=== PATIENT | male | born 1980 | race Caucasian/White ===

== ENCOUNTER 2017-07-28 | Emergency (ER) | payer OTHER ==
[~2017-07-28] VITALS: Ht 175.3 cm; Wt 80.0 kg
[2017-07-28 00:08] VITALS: Ht 175.3 cm; Wt 80.0 kg
--- NOTE | 2017-07-28 00:59 | ERD ---
ER Documentation Chief Complaint Chief Complaint mechanical fall, ETOH HPI The patient is a 37-year-old male, presenting to the ER because he had a mechanical fall while he was getting out of the shower around 9:30 PM. He is awake, alert, able to answer question appropriately. He denies syncope, near syncope, neck pain, chest pain, dyspnea, abdominal pain, vomiting. He does not smoke, drinks socially, denies illicit drug, had Tdap IM about 2 years ago Past medical history: Hemophilia Surgical history: None ROS All systems reviewed and are negative except as per history of present illness. Allergies Allergies: Coded Allergies: No Known Allergy (Unverified , 07/28/17) PMhx/Soc History of Surgery: No Anesthesia Reaction: No Hx Neurological Disorder: No Hx Respiratory Disorders: No Hx Cardiac Disorders: No Hx Psychiatric Problems: No Hx Miscellaneous Medical Probl: No (HEMOPHILIA) Hx Alcohol Use: Yes Hx Substance Use: No Hx Tobacco Use: Yes Smoking Status: Current every day smoker Physical Exam Vitals Vital Signs Date Time Temp Pulse Resp B/P Pulse Ox O2 Delivery O2 Flow Rate FiO2 07/28/17 00:08 97.9 104 18 121/75 98 Physical Exam Const: No acute distress. Head: There is a 8 cm scalp lac with mild bleeding Eyes: Normal Conjunctiva. ENT: Normal External Ears, Nose and Mouth. Neck: Full range of motion. No meningismus. Resp: Clear to auscultation bilaterally. Cardio: Regular rate and rhythm. Abd: Soft, non distended, normal bowel sounds, non tender. Skin: No petechiae or rashes. Back: No midline or flank tenderness. Ext: No cyanosis, or edema. Neur: Awake and alert. No focal deficit Psych: Normal Mood and Affect. Result Diagram: 07/28/1721407/28/17214 Results 24 hrs Laboratory Tests Test 07/28/17 02:15 White Blood Count 4.110^3/ul Red Blood Count 4.1410^6/ul Hemoglobin 7.9g/dl Hematocrit 26.7% Mean Corpuscular Volume 64.5fl Mean Corpuscular Hemoglobin 19.1pg Mean Corpuscular Hemoglobin Concent 29.6g/dl Red Cell Distribution Width 22.4% Platelet Count 6810^3/UL Mean Platelet Volume fl Neutrophils % 40.1% Lymphocytes % 38.2% Monocytes % 14.7% Eosinophils % 2.9% Basophils % 3.9% Nucleated Red Blood Cells % 0.0/100WBC Neutrophils # 1.710^3/ul Lymphocytes # 1.610^3/ul Monocytes # 0.610^3/ul Eosinophils # 0.110^3/ul Basophils # 0.210^3/ul Nucleated Red Blood Cells # 0.010^3/ul Prothrombin Time 16.6Sec Prothrombin Time Ratio 1.3 INR International Normalized Ratio 1.32 Activated Partial Thromboplast Time 54.2Sec Sodium Level 146mmol/L Potassium Level 3.5mmol/L Chloride Level 107mmol/L Carbon Dioxide Level 25mmol/L Anion Gap 18 Blood Urea Nitrogen 7mg/dl Creatinine 0.76mg/dl Glucose Level 102mg/dl Calcium Level 8.3mg/dl Current Medications Medications (Trade) Dose Ordered Sig/Alyx Route PRN Reason Start Time Stop Time Status Last Admin Dose Admin Lidocaine/ Epinephrine (Xylocaine 1%/ Epi (Pf)) 30 ml ONCE STAT INJ 07/28/17 03:01 07/28/17 03:02 DC Procedures/[place] [id number] Radiology Main Line: [phone] DIAGNOSTIC IMAGING REPORT Patient: SHAWN LEÓN : 1980 Age: 37 Sex: M MR #: [id number] [facility] #: [id number] DOS: 07/28/17 0127 Ordering MD: JOSE OROZCO MD Location: E/R Room/Bed: PROCEDURE: CT Brain without contrast. CLINICAL INDICATION: Headache. TECHNIQUE: A CT of the brain was performed utilizing axial imaging from the skull base through the vertex without IV contrast. Multiplanar reformatted images were made. Images were reviewed on a PACS workstation. The CTDIvol is 44.03 mGy and the DLP is 720.23 mGycm. DICOM images are available. One or more of the following dose reduction techniques were utilized: 1.) Automated exposure control 2.) Adjustment of the mA +/- kV according to patient's size 3.) Use of iterative reconstruction technique. COMPARISON: None FINDINGS: Scalp hematoma over the posterior left parietal occipital region. Mild chronic changes of atrophy are greater than expected for patient age. There is no intracranial hemorrhage, mass effect, or midline shift. No extra- axial fluid collection is seen. The ventricles and sulci are normal in size and configuration. The density of the brain is normal, and the rubin white matter differentiation appears well-preserved. The visualized paranasal sinuses and osseous structures are grossly unremarkable. IMPRESSION: 1. Scalp hematoma over the posterior left parietal occipital region. 2. Mild chronic changes of atrophy are greater than expected for patient age, and otherwise, no acute process in the head. RPTAT: [facility] Physician Geovany Date Time Electronically viewed and signed by Physician Geovany on 07/28/2017 02:02 RS/ CC: JOSE OROZCO MD [place] [address] Radiology Main Line: [phone] DIAGNOSTIC IMAGING REPORT Patient: SHAWN LEÓN : 1980 Age: 37 Sex: M MR #: [id number] DOS: 07/28/17 0127 Ordering MD: JOSE OROZCO MD Location: E/R Room/Bed: PROCEDURE: CT Cervical Spine. CLINICAL INDICATION: Fall with neck pain. TECHNIQUE: A CT of the cervical spine was performed utilizing thin section axial images from the skull base through the thoracic inlet. Sagittal and coronal reformatted images were made. The CTDIvol is 22.27 mGy and the DLP is 539.86 mGycm. DICOM images are available. One or more of the following dose reduction techniques were utilized: 1.) Automated exposure control 2.) Adjustment of the mA +/- kV according to patient's size 3.) Use of iterative reconstruction technique. COMPARISON: None. FINDINGS: There is a normal lordosis of the cervical spine. No vertebral body subluxation is seen. No fractures are evident. The posterior elements are normally aligned. The surrounding soft tissues are normal in appearance. The intervertebral discs are normal in height. No significant disk bulge or protrusion is seen. The central canal and foramina are adequately patent at all levels. IMPRESSION: No acute fracture. RPTAT: [facility] Physician Geovany Date Time Electronically viewed and signed by Physician Geovany on 07/28/2017 02:06 RS/ CC: JOSE OROZCO MD MEDICAL MAKING DECISION: The patient is a 37-year-old male, presenting with scalp laceration, alcohol abuse. He is stable for outpatient follow-up The differential diagnoses considered include but are not limited to subarachnoid hemorrhage, occult trauma, CVA, meningitis, encephalitis, hypertension, tension, migraine, cluster, narcotic withdrawal, cervical spine disease. Laceration Repair by me: Anesthesia: 1% lidocaine locally Location: Occiput Tendon/Joint/Nerves: No injury Foreign body: None detected after copious irrigation and exploration Technique: Luiza Complexity: No subcutaneous sutures/mucosal repair/ edge excision Post Closure Length: 8 cm Patient's bleeding was easily controlled in the department and there is no indication of anemia. No evidence of compartment syndrome, neurologic injury, vascular injury, open joint, tendon laceration, or foreign body. Patient is appropriate for outpatient follow up. 48 hour wound check. Scar minimization instructions given. Departure Diagnosis: Primary Impression: Scalp laceration Additional Impression: Pancytopenia Condition: Good Comments I discussed the findings with the patient. I advised the patient to follow-up with the primary physician or the ER tomorrow Disclaimer: Inadvertent spelling and grammatical errors are likely due to EHR/ dictation software use and do not reflect on the overall quality of patient care. Also, please note that the electronic time recorded on this note does not necessarily reflect the actual time of the patient encounter. JOSE OROZCO MD Jul 28, 2017 00:59
--- NOTE | 2017-07-28 02:02 | RADRPT ---
PROCEDURE: CT Brain without contrast. CLINICAL INDICATION: Headache. TECHNIQUE: A CT of the brain was performed utilizing axial imaging from the skull base through the vertex without IV contrast. Multiplanar reformatted images were made. Images were reviewed on a [employer] workstation. The CTDIvol is 44.03 mGy and the DLP is 720.23 mGycm. DICOM images are available. One or more of the following dose reduction techniques were utilized: 1.) Automated exposure control 2.) Adjustment of the mA +/- kV according to patient's size 3.) Use of iterative reconstruction technique. COMPARISON: None FINDINGS: Scalp hematoma over the posterior left parietal occipital region. Mild chronic changes of atrophy are greater than expected for patient age. There is no intracranial hemorrhage, mass effect, or midline shift. No extra-axial fluid collection is seen. The ventricles and sulci are normal in size and configuration. The density of the brain is normal, and the rubin white matter differentiation appears well-preserved. The visualized paranasal sinuses and osseous structures are grossly unremarkable. IMPRESSION: 1. Scalp hematoma over the posterior left parietal occipital region. 2. Mild chronic changes of atrophy are greater than expected for patient age, and otherwise, no acut e process in the head. RPTAT: [facility] Physician Geovany Date Time Electronically viewed and signed by Physician Geovany on 07/28/2017 02:02 /
--- NOTE | 2017-07-28 02:06 | RADRPT ---
PROCEDURE: CT Cervical Spine. CLINICAL INDICATION: Fall with neck pain. TECHNIQUE: A CT of the cervical spine was performed utilizing thin section axial images from the skull base through the thoracic inlet. Sagittal and coronal reformatted images were made. The CTDI vol is 22.27 mGy and the DLP is 539.86 mGycm. DICOM images are available. One or more of the following dose reduction techniques were utilized: 1.) Automated exposure control 2.) Adjustment of the mA +/- kV according to patient's size 3.) Use of iterative reconstruction technique. COMPARISON: None. FINDINGS: There is a normal lordosis of the cervical spine. No vertebral body subluxation is seen. No fractu res are evident. The posterior elements are normally aligned. The surrounding soft tissues are nor mal in appearance. The intervertebral discs are normal in height. No significant disk bulge or pro trusion is seen. The central canal and foramina are adequately patent at all levels. IMPRESSION: No acute fracture. RPTAT: [facility] Physician Geovany Date Time Electronically viewed and signed by Physician Geovany on 07/28/2017 02:06 RS/
[2017-07-28] MEDS ORDERED: LIDOCAINE 1%/EPI 30 ML INJ INJ STA (03:01)
[2017-07-28 03:12] LABS: CALCIUM 8.3 mg/dl (8.4-10.2); CREATININE 0.76 mg/dl (0.61-1.24); INR 1.32; POTASSIUM 3.5 mmol/L (3.5-5.1); PROTIME 16.6 Sec (11.9-14.9); PT RATIO 1.3
[2017-07-28 03:13] LABS: PARTIAL THROMBOPLASTIN TIME 54.2 Sec (25.0-35.0)
[2017-07-28 03:30] LABS: ABNORMAL IP MESSAGE 1; BASOPHIL # 0.2 10^3/ul (0.0-0.1); BASOPHILS % 3.9 % (0.0-2.0); EOSINOPHILS # 0.1 10^3/ul (0.0-0.5); EOSINOPHILS % 2.9 % (0.0-7.0); HEMATOCRIT 26.7 % (42.0-52.0); HEMOGLOBIN 7.9 g/dl (14.0-18.0); LYMPHOCYTES # 1.6 10^3/ul (0.8-2.9); LYMPHOCYTES % 38.2 % (15.0-51.0); MEAN CORPUSCULAR HEMOGLOBIN 19.1 pg (29.0-33.0); MEAN CORPUSCULAR HGB CONC 29.6 g/dl (32.0-37.0); MEAN CORPUSCULAR VOLUME 64.5 fl (82.0-101.0); MONOCYTE # 0.6 10^3/ul (0.3-0.9); MONOCYTES % 14.7 % (0.0-11.0); NEUTROPHIL # 1.7 10^3/ul (1.6-7.5); NEUTROPHILS % 40.1 % (39.0-77.0); PLATELET COUNT 68 10^3/UL (140-415); POSITIVE DIFF @See below; RED BLOOD COUNT 4.14 10^6/ul (4.70-6.10); RED CELL DISTRIBUTION WIDTH 22.4 % (11.5-14.5); WHITE BLOOD COUNT 4.1 10^3/ul (4.8-10.8)
[2017-07-28 06:48] VITALS: TEMP 97.8
[2017-07-28 08:59] VITALS: BP 96/64; PULSE 93; RESP 18
== END 2017-07-28 13:43 | disposition home or self-care (01) ==
LOC: E/R
DX: S01.01XA Laceration without foreign body of scalp, initial encounter (principal); D61.818 Other pancytopenia; F17.210 Nicotine dependence, cigarettes, uncomplicated; R07.9 Chest pain, unspecified; W18.39XA Other fall on same level, initial encounter; Y92.9 Unspecified place or not applicable
CPT/HCPCS: 12004; 36415; 70450; 72125; 80048; 85025; 85610; 85730; Z7502; Z7610

== ENCOUNTER 2017-07-31 17:01 | Emergency (ER) | payer SELFPAY ==
[~2017-07-31] VITALS: Ht 177.8 cm; Wt 91.5 kg
[2017-07-31 17:39] VITALS: Ht 177.8 cm; Wt 91.5 kg
== END 2017-07-31 22:07 | disposition left against medical advice (07) ==
LOC: E/R 17:01
DX: Z53.21 Procedure and treatment not carried out due to patient leaving prior to being seen by health care provider (principal)

== ENCOUNTER 2017-08-23 19:21 | Emergency (ER) | END 2017-08-23 22:00 | disposition home or self-care (01) ==